=== PATIENT | female | born 1930 | race Native Hawaiian/Other Pacific Islander ===

== ENCOUNTER 2016-07-23 09:19 | Outpatient (CLI) | payer OTHER ==
[~2016-07-23 09:19] MED LIST: AMLO2.5T PO; ASPIRIN325 M1 PO; CALCITONIN200 MG/ACT PO; CALCIUM 500/VITAMI1 PO; FURO40TA93 PO; GABA300C2 PO; LISI20TA11 PO; NAPROSYN500 MG PO; OMEPRAZOLE20 M1 PO
[2016-07-23 10:26] LABS: POTASSIUM 4.2 mmol/L (3.6-5.2); SODIUM 138 mmol/L (136-145)
[2016-07-24 08:56] LABS: PLATELET COUNT 154 K/uL (152-353)
== END 2016-07-23 19:21 | disposition home or self-care (01) ==
LOC: LABW 09:19
PROVIDERS: Physician Assistant
DX: I10 Essential (primary) hypertension (principal); R00.0 Tachycardia, unspecified; Z79.899 Other long term (current) drug therapy; Z51.81 Encounter for therapeutic drug level monitoring
CPT/HCPCS: 36415; 80053; 80061; 83036; 84439; 84443; 85027

== ENCOUNTER 2016-08-12 10:51 | Outpatient (CLI) | payer OTHER | END 2016-08-12 19:22 | disposition home or self-care (01) | LOC: CT 10:51 | DX: G31.84 Mild cognitive impairment of uncertain or unknown etiology (principal) ==

== ENCOUNTER 2016-09-18 12:51 | Outpatient (CLI) | payer OTHER | END 2016-09-18 19:08 | disposition home or self-care (01) | LOC: LABW 12:51 | DX: G31.84 Mild cognitive impairment of uncertain or unknown etiology (principal) | CPT/HCPCS: 36415; 82607; 83090; 85651; 86039 ==

== ENCOUNTER 2017-02-11 08:01 | Day surgery (SDC) | payer OTHER ==
[2017-02-06 11:50] LABS: PLATELET COUNT 146 K/uL (152-353)
[2017-02-06 11:56] LABS: POTASSIUM 3.9 mmol/L (3.6-5.2); SODIUM 140 mmol/L (136-145)
== END 2017-02-11 10:15 | disposition home or self-care (01) ==
LOC: OR 08:01
PROVIDERS: Student in an Organized Health Care Education/Training Program
PROC: 0DJD8ZZ Inspection of Lower Intestinal Tract, Via Natural or Artificial Opening Endoscopic (ICD-10-PCS; principal; 2017-02-11)
DX: K64.4 Residual hemorrhoidal skin tags (principal); Z12.11 Encounter for screening for malignant neoplasm of colon; R19.7 Diarrhea, unspecified; K59.09 Other constipation
CPT/HCPCS: G0121; 80053; 85027; J2001; J2704; J3010

== ENCOUNTER 2017-08-07 09:17 | Outpatient (CLI) | payer OTHER ==
[2017-08-07 09:55] LABS: PLATELET COUNT 175 K/uL (152-353)
[2017-08-07 10:31] LABS: POTASSIUM 3.7 mmol/L (3.6-5.2)
== END 2017-08-07 19:14 | disposition home or self-care (01) ==
LOC: LABW 09:17
PROVIDERS: Internal Medicine
DX: I10 Essential (primary) hypertension (principal); M81.0 Age-related osteoporosis without current pathological fracture
CPT/HCPCS: 36415; 80053; 80061; 81000; 82652; 84443; 85027

== ENCOUNTER 2018-07-03 08:08 | Outpatient (CLI) | payer OTHER ==
[2018-07-03 09:06] LABS: PLATELET COUNT 170 K/uL (152-353)
[2018-07-03 09:26] LABS: POTASSIUM 3.8 mmol/L (3.6-5.2)
== END 2018-07-03 22:37 | disposition home or self-care (01) ==
LOC: LABW 08:08
PROVIDERS: Internal Medicine
DX: I10 Essential (primary) hypertension (principal)
CPT/HCPCS: 36415; 80053; 80061; 81000; 84439; 84443; 85027